=== PATIENT | female | born 1980 | race Caucasian/White ===

== ENCOUNTER 2024-01-03 00:17 | Inpatient (IN) | payer BC ==
[2024-01-03] MEDS ORDERED: INSULIN REGULAR IN 0.9 % NACL 100 ML IV SCH (01:30)
[2024-01-03] MEDS ORDERED: SODIUM CHLORIDE 0.45% 1,000 ML IV SCH (01:30)
[2024-01-03] MEDS ORDERED: GLUCAGON,HUMAN RECOMBINANT 1 MG/ML VIAL SUB-Q PRN (01:30)
[2024-01-03] MEDS ORDERED: IBLOOD GLUCOSE TEST STRIP 1 EA TEST XX PRN (01:30)
[2024-01-03] MEDS ORDERED: Insulin Regular, Human 100 UNIT/ML ML IV PRN (01:30)
[2024-01-03] MEDS ORDERED: LIDOCAINE 2% VISCOUS 6 ML SYR TOP ONE ×4 (01:30→16:30)
[2024-01-03] MEDS ORDERED: DEXTROSE 50% 50 ML SYR IV PRN ×2 (01:30)
[2024-01-03] MEDS ORDERED: DEXTROSE 5% 1,000 ML IV PRN (01:30)
[2024-01-03] MEDS ORDERED: MAGNESIUM HYDROXIDE/AL HYDROX 30 ML CUP PO PRN ×2 (01:30→16:30)
[2024-01-03] MEDS ORDERED: DEXTROSE 5% - NACL 0.45% 1,000 ML IV SCH (01:30)
[2024-01-03] MEDS ORDERED: OXYTOCIN/DEXTROSE 5% 20 UNITS/100 ML BAG IV SCH (01:30)
[2024-01-03] MEDS ORDERED: CALCIUM CARBONATE 500 MG CHEW PO PRN ×2 (01:30→16:30)
[2024-01-03 01:31] LABS: HEMATOCRIT 37.6 % (35.0-50.0); HEMOGLOBIN 13.3 g/dL (12.0-18.0); MCH 32.7 (27-36); MCHC 35.5 g/dl (30-36); RBC 4.08 M/ul (4.3-5.7)
[2024-01-03 01:52] LABS: AMPHETAMINES, URINE NEGATIVE (NEGATIVE); BARBITURATES, URINE NEGATIVE (NEGATIVE); BENZODIAZEPINE, URINE NEGATIVE (NEGATIVE); BUPRENORPHINE, URINE NEGATIVE (NEGATIVE); CANNABINOID, URINE NEGATIVE (NEGATIVE); COCAINE, URINE NEGATIVE (NEGATIVE); ECSTASY, URINE NEGATIVE (NEGATIVE); FENTANYL, URINE NEGATIVE (NEGATIVE); METHADONE, URINE NEGATIVE (NEGATIVE); OPIATES, URINE NEGATIVE (NEGATIVE); OXYCODONE, URINE NEGATIVE (NEGATIVE); PHENCYCLIDINE, URINE NEGATIVE (NEGATIVE)
[2024-01-03] MEDS ORDERED: IBLOOD GLUCOSE TEST STRIP 1 EA TEST VI SCH (02:00)
[2024-01-03 02:03] LABS: ABO A; ANTIBODY SCREEN NEGATIVE; RH POSITIVE
[2024-01-03] MEDS ORDERED: fentaNYL citrate 100 MCG/2 ML VIAL ONE ×2 (05:50→13:38)
[2024-01-03] MEDS ORDERED: ROPIVACAINE 0.2% 200 ML BAG EPIDURAL SCH (06:00)
[2024-01-03] MEDS ORDERED: LACTATED RINGER'S 2,000 ML IV ONE (06:00)
[2024-01-03] MEDS ORDERED: ePHEDrine sulfate 5 MG/ML SYRINGE IV PRN (06:00)
[2024-01-03] MEDS ORDERED: LACTATED RINGER'S 500 ML IV PRN (06:00)
[2024-01-03] MEDS ORDERED: ePHEDrine KIT FOR FBC IV ONE (06:28)
[2024-01-03] MEDS ORDERED: ePHEDrine sulfate 50 MG/ML AMP ONE (06:45)
[2024-01-03] MEDS ORDERED: ondansetron HCL 4 MG/2 ML VIAL ONE (06:46)
[2024-01-03] MEDS ORDERED: OXYTOCIN/0.9 % SODIUM CHLORIDE 500 ML IV SCH ×2 (07:15→16:30)
[2024-01-03] MEDS ORDERED: BUPIVACAINE HCL 0.5% 30 ML VIAL ONE (13:06)
[2024-01-03] MEDS ORDERED: SODIUM CHLORIDE 0.9% 20 ML IV ONE (13:08)
[2024-01-03] MEDS ORDERED: HYDROCORTISONE ACETATE 25 MG SUPP PR PRN (16:30)
[2024-01-03] MEDS ORDERED: ACETAMINOPHEN 325 MG TAB PO PRN (16:30)
[2024-01-03] MEDS ORDERED: HYDROCODONE/ACETA 5/325 TAB PO PRN (16:30)
[2024-01-03] MEDS ORDERED: WITCH HAZEL/GLYCERIN 1 EA PAD TOP PRN (16:30)
[2024-01-03] MEDS ORDERED: BENZOCAINE 60 ML AEROSOL TOP PRN (16:30)
[2024-01-03] MEDS ORDERED: MAGNESIUM HYDROXIDE 30 ML UDC PO PRN (16:30)
[2024-01-03] MEDS ORDERED: IBUPROFEN 600 MG TAB PO PRN (16:30)
[2024-01-03] MEDS ORDERED: miSOPROStoL 200 MCG TAB PR ONE (18:45)
[2024-01-03] MEDS ORDERED: SENNOSIDES/DOCUSATE 1 EA TAB PO SCH (21:00)
[2024-01-04 05:54] LABS: HEMATOCRIT 35.4 % (35.0-50.0); HEMOGLOBIN 12.5 g/dL (12.0-18.0); MCHC 35.2 g/dl (30-36); MCV 93.6 fl (81-99); RBC 3.78 M/ul (4.3-5.7); RDW 15.8 (10.5-15.0)
== END 2024-01-04 17:36 | disposition home or self-care (01) | DRG 807 ==
LOC: FBCO 00:17 → FBC 01:18 → FBCO 23:46 → FBC 01-04 17:36
PROVIDERS: Obstetrics & Gynecology; ADMIT Obstetrics & Gynecology; ATTEND Obstetrics & Gynecology
PROC: 10E0XZZ Delivery of Products of Conception, External Approach (ICD-10-PCS; principal; 2024-01-03)
PROC: 3E0R3BZ Introduction of Anesthetic Agent into Spinal Canal, Percutaneous Approach (ICD-10-PCS; 2024-01-03)
PROC: 00HU33Z Insertion of Infusion Device into Spinal Canal, Percutaneous Approach (ICD-10-PCS; 2024-01-03)
DX: O24.424 Gestational diabetes mellitus in childbirth, insulin controlled (principal); Z37.0 Single live birth; O69.1XX0 Labor and delivery complicated by cord around neck, with compression, not applicable or unspecified; Z3A.38 38 weeks gestation of pregnancy; O99.284 Endocrine, nutritional and metabolic diseases complicating childbirth; E03.9 Hypothyroidism, unspecified; Z79.890 Hormone replacement therapy
CPT/HCPCS: 01960; 36415; 80307; 85027; 86850; 86900; 86901; A9270; J2405; J2590; J3010; J7042; J7121